=== PATIENT | female | born 1995 | race Two or more races ===

== ENCOUNTER 2024-10-08 17:39 | Emergency (ER) | payer OTHER ==
[~2024-10-08] VITALS: Ht 162.6 cm; Wt 63.5 kg
[2024-10-08] MEDS ORDERED: KETOROLAC TROMETHAMINE 60 MG VIAL IM ONE ×2 (18:30→18:33)
[2024-10-08] MEDS ORDERED: ORPHENADRINE CITRATE 30 MG/ML AMPUL IM ONE (18:30)
[2024-10-08] MEDS ORDERED: DEXAMETHASONE SODIUM PHOSPHATE 4 MG/ML VIAL IM ONE (18:30)
[2024-10-08] MEDS ORDERED: BACLOFEN10 MG PO (18:31)
[2024-10-08] MEDS ORDERED: DICLOFENAC SODI75 MG PO (18:31)
[2024-10-08] MEDS ORDERED: ORPHENADRINE CITRATE 30 MG/ML AMPUL ONE (18:33)
[2024-10-08] MEDS ORDERED: DEXAMETHASONE SODIUM PHOSPHATE 4 MG/ML VIAL ONE (18:33)
== END 2024-10-08 18:48 | disposition home or self-care (01) ==
LOC: ER 17:41
DX: M62.830 Muscle spasm of back (principal); M54.9 Dorsalgia, unspecified
CPT/HCPCS: 96372; 99282; J1100; J1885; J2360